=== PATIENT | female | born 1995 | race Caucasian/White ===

== ENCOUNTER 2025-05-11 19:28 | Emergency (ER) | payer BC, SELFPAY ==
--- OUTSIDE RECORDS SUMMARY | 2025-05-11 19:30 | XMS_ITS | Clinical Summary ---
Author Organization [facility] Address [address] [place] [address] Care Team Providers Care Commercial Lawn Specialist Name Role Phone Unavailable Primary Care Provider Unavailabl e Source Comments Patient records contain information from all sites at [facility]. For routine questions regarding patient records, call [phone] during business hours, M-F 8:00 AM - 5:00 PM Central Time. Record requests for emergency care only can be directed to [phone] at any time.[facility] Allergies No known active allergies Medications levonorgestreL (MIRENA) 21 mcg/24 hours (8 yrs) 52 mg IUD 1 Device by intrauterine route. 0 Active ibuprofen (ADVIL,MOTRIN) 200 mg tablet Take 600 mg by mouth every 6 (six) hours. 2 Active acetaminophen (TYLENOL) 325 mg tablet Take 975 mg by mouth every 6 (six) hours. 2 Active baclofen (LIORESAL) 5 mg tablet tablet Take 5 mg by mouth at bedtime as needed. 3 Active Active Problems Problem Noted Date Diagnosed Date Depression Major One Episode Moderate 01/07/2014 Overview (03/03/2017): Major Depressive Disorder, Single Episode, Moderate Degree Moderate major depression Asthma NOS 01/07/2014 Overview (03/03/2017): Asthma, Unspecified Asthma, moderate persistent, poorly-controlled Immunizations Immunization Administration Dates Next Due 4vHPV (discontinued) 12/18/2008,07/04/2008,04/27 DTP 05/14/1998, 5,05/30/1994,03/24/1994, HepA Pediatric/Adolescent 09/06/2012,06/10/2011 HepB, Unspecified 05/30/1994,01/20/1994,12/10/18 94 Hib, Unspecified 02/20/1995,03/24/1994, 4 Influenza, Unspecified 09/06/2012 MCV4 (Menactra)(Discontinued) 02/13/2010 MMR 05/14/1998,02/20/1995 OPV 05/14/1998,02/20/1995,03/24/1994 ,01/20/1994 Td (Adult), adsorbed 02/11/2006 Tdap 09/06/2012 Social History Tobacco Use Types Packs/Day Years Used Date Smoking Tobacco: Never Assessed Comments No Sex and Gender Information Value Date Recorded Sex Assigned at Not on file Legal Sex 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 Gender Identity Not on file Sexual Orientation Not on file Last Filed Vital Signs Vital Sign Reading Time Taken Comments Blood Pressure 110/76 06/20/2023 3:28 PM CDT Pulse 74 06/20/2023 3:28 PM CDT Temperature 36.6 C (97.9 F) 06/20/2023 3:28 PM CDT Respiratory Rate - - Oxygen Saturation 99% 06/20/2023 3:28 PM CDT Inhaled Oxygen Concentration - - Weight - - Height - - Body Mass Index - - Plan of Treatment Health Maintenance Due Date Last Done Comments Cervical/Vaginal Cancer Screening 1993 Depression Monitoring (PHQ-9) 1993 HIV Screening 1993 Hepatitis C Screening 1993 Pneumococcal vaccine (0-49 y ears) (1 of 2 - PCV) 2012 Asthma Action Plan 06/20/2023 Asthma Control Test Questionnaire 06/20/2023 Asthma Management/Exacerbati on Questionnaire (AMQ/AEQ) 06/20/2023 DTaP,Tdap,and Td Vaccines (8 - Td or Tdap) 05/15/2024 05/15/2014, 09/06/2012, 02/11/2006, Additional history exists COVID-19 Vaccine (3 - 2023-2 5 season) 2024 06/26/2021, 06/05/2021 Depression Monitoring (PHQ-9 for quality tracking) 10/12/2024 Influenza Vaccine (#1) 2025 06/28/2014, 2011 Hepatitis B Vaccines Completed 05/30/1994, 01/20/1994, 1993 IPV Vaccines Completed 05/14/1998, 02/09, 03/24/1994, Additional history exists HPV Vaccines Completed 12/18/2008, 06/13, 04/27/2008 Hepatitis A Vaccines Completed 09/06/2012, 06/10/20 11
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
--- OUTSIDE RECORDS SUMMARY | 2025-05-11 19:30 | XMS_ITS | Clinical Summary ---
Author Organization [facility] Address [address] , [address] [place] [address] Phone Care Team Providers Care Electronic Communications Technician Name Role Phone Records, Outside Unavailable Unavailable Conditions or Problems No information available. Medications No information available. Medications Administered No information available. Allergies, Adverse Reactions, Alerts No information available. Results Date Name Value Unit Range Flag Description Internal Other: Authorizatio n - OBS [email or web address] Yes Authoriza tion: Release of Information - Authorize [facility] - Payment and Healthcare Operations ROIAUTHOTHER Yes Authoriz ation: Release of Information - Authorize Others/Insurance - Payment and Healthcare Operations HIECONSENT Yes Consent To Release information to the Health Information Exchange (HIE) [email or web address] Yes Authorizat ion: Authorization for [facility] to leave messages, voicemail, send text messages, send emails AUTHRELHCARE Yes Authoriz ation: Release/Retrieval of Information to/from Healthcare Facilities, Pharmacy Benefit Payers and Providers [email or web address] Yes Authoriz ation: Notice of privacy practices AUTHBENEFIT Yes Authoriza tion: Assignment of Benefits and Payment Agreement Plan of Care Type Date Detail Appointment 12:20 PM Ezequiel Cardona MD , [address], [address], [place], [address], Procedures No information available. Vital Signs No information available. Immunizations No information available. Advance Directives No information available.
--- OUTSIDE RECORDS SUMMARY | 2025-05-11 19:30 | XMS_ITS | Clinical Summary ---
Author Organization [facility] Address [facility] [place] [address] Care Team Providers Care Prop Attendant Name Role Phone Georgia Mendiola MD Primary Care Pro vider Manuel Wells MD Unavailable [phone] Allergies No known active allergies Medications naproxen sodium (ALEVE ORAL) Take by mouth. Active methocarbamoL 750 mg tablet Take 1 Tablet by mouth two times daily. 10/13/2024 Active Hospital, Clinic, or Other Facility Administered Medication Ordered Dose Route Frequency Start Date End Date Status levonorgestrel intrauterine device (MIRENA) 1 DeviceIndications:Encounter for removal and reinsertion of IUD 1 Device IU Q 5 YEARS 11/01/2019 Active Active Problems Problem Noted Date Diagnosed Date Pap smear for cervical cancer screening 07/24/20 Overview (07/24/2022): 05/2022 NIL/HPV negative Plan: Pap/HPV due 05/2027 Carpal tunnel syndrome of right wrist 01/27/2018 Numbness and tingling in right hand 01/15/2018 Chronic eczema 08/31/2017 IUD (intrauterine device) in place 10/02/2014 Overview (10/02/2014): Mirena placed 10/02/2014 by Georgia Mendiola MD Resolved Problems Problem Noted Date Diagnosed Date Resolved Date Thyroid nodule 07/10/2021 12/21/2024 Overview (07/10/2021): Recheck with US 07/03 Left ovarian cyst 07/10/2021 12/21/2024 Overview (07/10/2021): 3cm US 07/02, likely dermoid. Plan to do FOLLOW UP us in 07/03 unless pain or wants removed. Chorioamnionitis 08/07/2014 09/25/2014 Single umbilical artery, maternal, antepartum 08/04/20 14 09/25/2014 testing 06/16/2014 09/25/2014 Overview (07/31/2014): MPP TESTING ONLY: has appointments thru 08/11/14 NEXT VISIT ALERTS: Delivery plans? PRIMARY DIAGNOSIS: Fetus with 2-vessel cord TESTING PLANS: Weekly BPP/NST GROWTH: 06/21/14 33w6d growth 83% REFERRING PHYSICIAN: Georgia Mendiola MD--[facility] MEDS: PNV and colace Abnormal umbilical cord 06/14/201409/11 Overview (06/14/2014): 2 vessel Supervision of high-risk 05/15/2014 10/02/2014 Overview (07/19/2014): Provider: Georgia Mendiola MD - please page or call for delivery Complications: survey u/s showed 2V cord. 05/09/2014: Had normal echo and level 2 US (growth 77%). Needs repeat growth in 4-6 weeks. OB COUNSELING: General: Nutrition, vitamins, weight gain, seat belts, exercise, hazards (smoking, alcohol, drugs, overheating, cats, raw meat, unpasteurized milk), discomfort and relief measures, warning signs 01/30/2014 Rh status positive Genetic testing options reviewed, undecided. 01/30/2014 Gestational glucose screen and hemoglobin 05/10/2014 Tdap (27-36 weeks) 05/15/2014 Breast/bottle - hoping to breastfeed Pre-term labor symptoms 07/12/2014 Baby M.D. Georgia Mendiola MD Circumcision would like Contraception - thinking IUD Immunizations Immunization Administration Dates Next Due COVID-19 vaccine (Z[employer] NTech 30mcg/0.3mL) PF MDV 06/26/2021,06/05/2021 DTP 05/14/1998, 5,05/30/1994,03/24,01/20/1994 Hepatitis A (Peds) 09/06/2012,06/10/2011 Hepatitis B, Unspecified 05/30/1994,01/20/1994,0 1993 Hib Conjugate, Unspecified 02/20/1995,03/24/1994 ,01/20/1994 Human Papilloma Virus Vaccine 12/18/2008, 008,04/27/2008 Influenza Virus, Unspecified 09/06/2012 Influenza, IIV3 (Age >=3 years) 09/06/2012 Influenza, IIV4 06/28/2014 MMR 05/14/1998,02/20/1995 Meningococcal Vaccine (Menactra) 02/13/2010 Oral Polio Vaccine 05/14/1998, 5,03/24/1994,01/20 Td (Age >=7 Years) 02/11/2006 Td, Preservative Free (age >= 7 Years) 6 Tdap 12/12/2024,05/15/2014,09/06/2012 Family History Medical History Relation Name Comments Arthritis Mother Psychiatric illness Mother depressi on Relation Name Status Comments Mother Social History Tobacco Use Types Packs/Day Years Used Date Smoking Tobacco: Former Cigarettes 0.5 3 0 2010 - 2013 Smokeless Tobacco: Never Tobacco Cessation:Counseling Given: Yes Alcohol Use Standard Drinks/Week Comments Yes 0 (1 standard drink = 0.6 oz pur e alcohol) occasional PHQ-2 Answer Date Recorded PHQ-2 TOTAL SCORE 0 09/12/2022 Social Connections Answer Date Recorded Frequency of Communication with Friends and Fami ly 0 06/17/2023 Financial Resource Strain Answer Date R ecorded Difficulty of Paying Living Expenses 3 06/17/2023 Difficulty of Paying Living Expenses Not on file 06/17/2023 Food Insecurity Answer Date Recorded Worried About Running Out of Food in the Last Ye ar 1 06/17/2023 Transportation Needs Answer Date Record ed Lack of Transportation (Medical) 1 06/17/2023 Housing Stability Answer Date Recorded Unable to Pay for Housing in the Last Year 1 06/17/2023 Comments No Sex and Gender Information Value Date Recorded Sex Assigned at Not on file 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 Gender Identity Not on file Sexual Orientation Not on file Obstetrics History Para Term AB IAB SAB Ectopic Multiple Livin g Live Births 2 1 1 0 1 0 1 0 0 1 1 Date Outcome GA Total Labor Labor/2nd/3rd Weight Sex Type Anes PTL Mercedes A1 A5 Name Clin SAB 014 Term 40w 4d 4.34 kg (9 lb 9 oz) M C-Sec tion REESE Prince ([place] [facility] ) Delivery Location:[facility] Last Filed Vital Signs Vital Sign Reading Time Taken Comments Blood Pressure 110/80 12/12/2024 4:58 PM SENIOR IT RECRUITER Pulse 78 12/12/2024 4:58 PM SENIOR IT RECRUITER Temperature 36.9 C (98.4 F) 06/17/2023 12:55 PM CDT Respiratory Rate 18 06/17/2023 12:55 PM CDT Oxygen Saturation 99% 06/17/2023 12:55 PM CDT Inhaled Oxygen Concentration - - Weight 85.4 kg (188 lb 3.2 oz) 12/12/2024 4:58 P M SENIOR IT RECRUITER Height 166 cm (5' 5.35) 12/12/2024 4:58 PM SENIOR IT RECRUITER Body Mass Index 30.98 12/12/2024 4:58 PM SENIOR IT RECRUITER Plan of Treatment Health Maintenance Due Date Last Done Comments Hepatitis C screening for age 18-79 2011 Depression screening for age 12+ 09/12/2023 09/12/2022, 06/05/2021, 06/05/2021, Additional history exists COVID-19 vaccine series ( season) 2024 06/26/2021, 06/05/2021 Influenza Vaccine (#1) 06/12/2025201 4, 09/06/2012, 09/06/2012 BMI (ht and wt on same day) for age 18+ 12/12/2025 12/12/2024, 11/23/2023, 08/14/2022, Additional history exists Pap test for age 21-65 05/30/2027 , 05/30/2022, 01/15/2018, Additional history exists Tetanus booster 12/12/2034 12/12/2024, 08/01/2014, 09/06/2012, Additional history exists Hepatitis B series for 19+ Completed 05/30, 01/20/1994, 1993 HIV for age 15-65 Completed 01/16/2014 Pneumococcal series for age 6-49 Aged Out No longer eligible based on patient's age to complete this topic Procedures Procedure Name Priority Date/Time Associated Diagnosis Comments HPV HIGH RISK Routine 05/30/2022 2:40 PM CDT Screening for malignant neoplasm of cervix ANTI HIV /2 Routine 01/16/2014 1:40 PM CDT Encounter for confirmation of test result with physical examination from Last 3 Months or Most Recently Relevant to Health Maintenance Results * HPV HIGH RISK (05/30/2022 2:40 PM CDT) TYPE 16 Negative Negative 06/04/2022 5:37 AM CDT [facility] TYPE 18 Negative Negative 06/04/2022 5:37 AM CDT [facility] OTHER HIGH RISK TYPES Negative Negative 06/04/2022 5:37 AM CDT [facility] Other (Cervical) Non-Blood / Unknown 05/30/2022 2:40 PM CDT 06/02/2022 8:30 AM CDT Narrative [facility] - 06/04/2022 5:37 AM CDT HPV types 16, 18, 31, 33, 35, 39, 45, 51, 52, 56, 58, 59, 66 and 68 DNA were undetectable or below the pre-set threshold. Methodology: Ruby Ghada 4800 HPV Test us Pamela Merritt MD MICROBIOLOGY Final Result [facility] [address] [place] [address], * ANTI HIV 1/2 (01/16/2014 1:40 PM CDT) ANTI HIV 1/2 Non-reacti ve [facility] Blood specimen (specimen) BLOOD SPECIMEN / Unknown 01/16/2014 1:40 PM CDT 01/16/2014 1:30 PM CDT us Isischarles Cedeno Tigre SEND OUTS Final Result [facility] [place]NAL ZIP [id number] [place] [address] from Last 3 Months or Most Recently Relevant to Health Maintenance Insurance [address] [facility] [place] [address] [facility] [place] [address] [place] [address] [place] [address] [place] [id number] [place] [id number] [place] [id number] Advance Directives * Full Code (Latest Code Status on File) Date Activated Date Inactivated Comments 08/18/2022 6:00 AM 08/18/2022 12:40 PM Question Answer Comments Code Status Discussion: Reviewed Preferences * Full Code Date Activated Date Inactivated Comments 08/07/2014 9:40 PM 08/10/2014 4:38 PM * Full Code Date Activated Date Inactivated Comments 08/07/2014 8:23 PM 08/07/2014 9:40 PM * Full Code Date Activated Date Inactivated Comments 08/06/2014 7:45 PM 08/07/2014 8:23 PM * Full Code Date Activated Date Inactivated Comments 08/06/2014 7:19 PM 08/06/2014 7:45 PM Care Teams Prop Attendant Relationship Specialty Start Date End Date Georgia Mendiola MD [address] [place] [address] [address] PCP - General Family Practice 01/16/14 Manuel Wells MD [address] [place] [address] [address] Consulting Physician Dermatology 01/15/18
[2025-05-11 19:40] VITALS: BP 134/101; PULSE 95; RESP 16; TEMP 36.6; O2SAT 97; BMI 28.3
--- NOTE | 2025-05-11 19:47 | CRLHL7_ITS ---
For Patients: As a result of the Cures Act, medical imaging exams and procedure reports are released immediately into your electronic medical record. You may view this report before your referring provider. If you have questions, please contact your health care provider. INDICATION: Laceration palmar aspect base of finger, some angulation. TECHNIQUE: Right hand 5th digit 3 view. COMPARISON: None. FINDINGS: Bones: There is dorsal dislocation of the 5th middle phalanx relative to the proximal phalanx. No definite fracture visualized. Joint spaces: Unremarkable. Soft tissues: Soft tissue swelling about the 5th digit. Curvilinear lucency within the soft tissues along the volar aspect of the 5th middle phalanx likely related to laceration. IMPRESSION: 1. Dislocation of the 5th PIP joint. 2. Soft tissue swelling about the 5th digit with laceration. Dictated by Nafisa Olvera MD @ 05/11/2025 8:24:28 PM (Electronically Signed)
--- OUTSIDE RECORDS SUMMARY | 2025-05-11 19:55 | XMS_ITS | Clinical Summary ---
Author Organization [facility] Address [address] , [address] [place] [address] Phone Care Team Providers Care Behavioral Health Therapist Name Role Phone Records, Outside Unavailable Unavailable [...] 12:20 PM Ezequiel Cardona MD , [address], [address], [place], [address], Procedures No information available. Vital Signs No information available. Immunizations No information available. Advance Directives No information available.
--- NOTE | 2025-05-11 20:17 | CRLHL7_ITS ---
For Patients: As a result of the Cures Act, medical imaging exams and procedure reports are released immediately into your electronic medical record. You may view this report before your referring provider. If you have questions, please contact your health care provider. Indication: Postreduction. Technique: Right hand, 5th phalanx, 3 views. Comparison: None. Findings/impression: The 5th PIP is in normal alignment, status post reduction. No acute fracture identified. Significant soft tissue swelling surrounding the PIP. Dictated by Fartun Small MD @ 05/11/2025 8:42:02 PM (Electronically Signed)
--- NOTE | 2025-05-11 20:29 | ED.WOUNDLAC ---
HPI - Wound/Laceration General Date Seen: 05/11/25 Chief Complaint: Laceration/Wound Stated Complaint: Right hand pinky finger broken Time Seen by Provider: 05/11/25 19:29 Source: patient Mode of arrival: ambulatory Limitations: no limitations History of Present Illness HPI narrative: Patient is a 29-year-old female presenting to emergency department for injury to her right pinky finger. She states a kid while playing soccer slid into her finger causing a laceration and swelling to her finger. She is unable to bend her finger at the PIP joint. Denies any other injuries. No other injuries noted. Related Data Home Medications ?Medication ?Instructions ?Recorded ?Confirmed methocarbamol 750 mg tablet 750 mg PO 3XD PRN 05/11/25 05/11/25 Allergies Allergy/AdvReac Type Severity Reaction Status Date / Time No Known Drug Allergies Allergy Verified 05/11/25 19:43 Review of Systems Narrative: Pertinent systems reviewed and were negative unless stated in HPI Exam Narrative: Exam Narrative: Const: Well-nourished, Well-developed, in mild distress Eyes: PERRL, no conjunctival injection, and symmetrical lids HENT: Atraumatic external nose and ears. Moist mucous membranes. MSK:Extremities w/o deformity, obvious deformity to the right PIP joint with decreased movement Skin: Warm, Dry. 2 cm laceration on the palmar aspect of the right 5th finger going from the base of the finger and wrapping around just past the PIP joint. Neuro: Normal Muscle tone, No focal neurological deficits. Psych: Awake, Alert, & Oriented x3. Appropriate mood and affect. Const: Vital Signs, click to edit/add: Vital Signs - 24 hr 05/11/25 19:40 Temperature 98 F Pulse Rate [Pulse Oximeter] 95 Respiratory Rate 16 Blood Pressure [Ri ght Upper Arm] 134/101 H Pulse Oximetry 97 Oxygen Delivery Me thod Room Air Course Vital Signs Vital signs: Initial Vital Signs Temperature 98 F 05/11/25 19:40 Temperature Source Temporal Artery Scan 05/11/25 19:40 Pulse Rate 95 05/11/25 19:40 Respiratory Rate 16 05/11/25 19:40 Blood Pressure 134/101 H 05/11/25 19:40 Blood Pressure Mean 112 H 05/11/25 19:40 Blood Pressure Position Semi-Fowlers 05/11/25 19:40 Pulse Oximetry 97 05/11/25 19:40 Oxygen Delivery Method Room Air 05/11/25 19:40 Vital Signs Temperature 98 F 05/11/25 19:40 Pulse Rate 95 05/11/25 19:40 Respiratory Rate 16 05/11/25 19:40 Blood Pressure 134/101 H 05/11/25 19:40 Pulse Oximetry 97 05/11/25 19:40 Oxygen Delivery Method Room Air 05/11/25 19:40 Temperature 98 F 05/11/25 19:40 Pulse Rate 95 05/11/25 19:40 Respiratory Rate 16 05/11/25 19:40 Blood Pressure 134/101 H 05/11/25 19:40 Pulse Oximetry 97 05/11/25 19:40 Oxygen Delivery Method Room Air 05/11/25 19:40 Medications Administered Medications: Discontinued Medications Generic Name Dose Route Start Last Admin Trade Name Freq PRN Reason Stop Dose Admin Diphtheria/Tetanus/Acell Pertussis 0.5 ml 05/11/25 20:40 05/11/25 20:47 Tetanus/Diphth/Pertussis 0.5 Ml Syringe IM 05/11/25 20:41 0.5 ml .ONCE ONE Administration MDM - Wound/Laceration MDM Narrative Medical decision making narrative: Patient is a 29-year-old female presenting for laceration to her right 5th finger. X-ray was done after the nerve block showing a dislocated PIP. The area was reduced and then 1 deep suture and 7 superficial sutures were placed. She tolerated this procedure well. No signs of retained foreign bodies or fractures. Repeat x-rays showed an anatomical reduction. Splint was placed because the initial reduction the finger did tried to dislocate again. This may have been due to the laceration not being closed yet but either way I do believe a slant will be beneficial. Considering laceration did go down to the tendon, but not injure the tendon, I do believe prophylactic antibiotics are indicated. She will be discharged. Discharge Plan Discharge Clinical Impression: Laceration, Dislocated finger Patient Disposition: Home, Self-Care Condition: Improved Instructions: Finger Dislocation (ED) Additional Instructions: Follow-up with your primary care provider or urgent care in the next 7 days to have the 7 sutures removed. For next 6 months, once sutures are removed, whenever you go outside put a dab of sunscreen over the laceration site to improve scar appearance. Topical antibiotics are not necessary at this time. Patient can shower but do not submerge the laceration until sutures are removed. Wear the splint until sutures are out next week. Take the Keflex prescribed via instymeds. Activity Level: No Restrictions Discharge Diet: Regular Prescriptions: No Action methocarbamol 750 mg tablet 750 mg PO 3XD PRN Follow Up/Referrals: Provider,Not a Local [Primary Care Provider, Family Practice] Stand Alone Forms: [facility] Info Instructions Procedures Laceration Right 5th finger: Verification/time out: correct patient Name of person performing procedure: Yuriy Ferraro Site: hand (5th finger) Side (If applicable): right Size (cm): 2 Description: linear Depth: simple, single layer Local Anesthetic: lidocaine 1% (Digital nerve block) Amount of anesthesia used (mL): 5 Pre-repair: wound explored, irrigated extensively and deep structures intact Skin layer closed with: nylon Size (cm): 4-0 Number of sutures: 7 Technique: simple, interrupted Subcutaneous layer closed with: Vicryl Size: 4-0 Number of sutures: 1 Technique: simple, interrupted Orthopedic Joint Reduction Right 5th finger: Side: right Joint Reduction Location: other (Finger) Manipulation used?: Yes Analgesia: nerve block Local Anesthesia: lidocaine 1% Amount of anesthesic used (mL): 5 Technique used: direct manipulation Post-reduction neuro vascular exam: intact Post Reduction X-Ray Obtained: Yes Post Reduction X-Ray Results: reduced Splint Applied: Yes Patient Tolerated Procedure: well
[2025-05-11] MEDS: TETANUS/DIPHTH/PERTUSSIS 0.5 ML SYRINGE IM (20:47)
== END 2025-05-11 20:53 | disposition home or self-care (01) ==
PROVIDERS: Emergency Provider Student in an Organized Health Care Education/Training Program
DX: S63.286A Dislocation of proximal interphalangeal joint of right little finger, initial encounter (principal); Y93.66 Activity, soccer; Z23 Encounter for immunization
CPT/HCPCS: 26770; 73140; 90471; 90715; 99283